=== PATIENT | male | born 1995 | race Caucasian/White ===

== ENCOUNTER 2019-01-14 08:56 | Emergency (ER) | payer OTHER, SELFPAY ==
[2019-01-14 08:57] VITALS: BP 130/80; PULSE 79; RESP 18; TEMP 36.6; O2SAT 99; BMI 19.5
--- NOTE | 2019-01-14 09:23 | EKG12_ITS ---
Test Reason : CONFUSION Blood Pressure : / mmHG Vent. Rate : 060 BPM Atrial Rate : 060 BPM P-R Int : 154 ms QRS Dur : 106 ms QT Int : 408 ms P-R-T Axes : 055 049 036 degrees QTc Int : 408 ms Normal sinus rhythm with sinus arrhythmia Normal ECG Confirmed by BINH RAGSDALE ([id number]), photograph editor JORDAN ÁLVAREZ ([id number]) on 01/20/2019 3:39:19 PM Referred By: MIMA Confirmed By:BINH RAGSDALE
--- NOTE | 2019-01-14 09:23 | CT_ITS ---
STUDY: CT BRAIN WITHOUT CONTRAST REASON FOR EXAM: Male, 23 years old. Headache since last evening. RADIATION DOSAGE (If Supplied By Facility): CTDIvol = ( 44.99 ) mGy, DLP = ( 796.11 ) mGycm TECHNIQUE: Transaxial CT imaging of the brain was performed without administration of intravenous contrast material. Multiplanar reformations are submitted for interpretation. Individualized dose optimization techniques were used for this CT. COMPARISON: No relevant priors. FINDINGS: Normal soft tissue structures. Normal calvarium. There is asymmetry of the ventricles consistent with an anatomic variant. Normal white matter tracts of the cerebral hemispheres. Normal basal ganglia and thalami. Normal brainstem. Normal cerebellum. There is no intracranial hemorrhage. There are no findings of an acute ischemic infarction. Normal visualized paranasal sinuses. CT/Brain/Head without Contrast IMPRESSION: No CT evidence for acute abnormality. Electronically Signed: Dixie Johnson MD at 10:19 EDT , Service support ,
--- NOTE | 2019-01-14 09:24 | ED.DCSUM_ITS ---
History of Present Illness Chief Complaint: Confusion Detail of Chief Complaint: Confusion and headache Informant: Patient Onset: Yesterday Context: Gradual Onset Current Severity: Moderate Maximum Severity: Moderate Narrative: Patient presents with a frontal headache that started around 6 PM last evening. It gradually worsened. He reports having difficulty concentrating. He feels like his speech is slower than normal. He does have light sensitivity and sensitivity to loud sounds. He denies nausea or vomiting. He has not taken anything for headache. He denies any recent head injury or URI symptoms. He does not have a history of migraines. Past Medical History - Allergies and Home Meds Allergies/Adverse Reactions: Allergies No Known Allergies Allergy (Verified 01/14/19 09:56) Primary Care Physician: Care Physician,No Primary [Primary Care Provider] - Prior records reviewed: Yes Past Medical History: - - Reviewed Smoking Status: Current every day smoker Review of Systems General: Denies: Chills, Fever Eyes: Reports: Visual changes - bilaterally - Squiggly lines in vision, - - Mild photophobia ENT: Denies: Bilateral ear pain Cardiovascular: Denies: Chest pain, Palpitations Respiratory: Denies: Dyspnea, Cough Gastrointestinal: Denies: Abdominal pain, Nausea, Vomiting, Diarrhea Musculoskeletal: Denies: Neck pain, Back pain Skin: Denies: Rash Neurological: Reports: Headache. Denies: Weakness, Parasthesia Hematologic: Denies: Easy bruising, Easy bleeding Allergy: Denies: Uticaria Physical Exam Vital Signs/Narrative: Vital Signs Temp Pulse Resp BP Pulse Ox 01/14/19 08:57 97.9 F 79 18 130/80 H 99 Diagnostic/Tx/Re-eval Impressions Brain CT 01/14/19 09:23 IMPRESSION: No CT evidence for acute abnormality. Electronically Signed: Dixie Johnson MD at 10:19 EDT , Service support , 01/14/19 09:23 Brain/Head without Contrast [CT] Stat Laboratory Results 01/14/19 01/14/19 09:28 09:28 WBC 6.5 RBC 5.44 Hgb 15.3 Hct 44.6 MCV 82.0 MCH 28.1 MCHC 34.3 RDW Std Deviation 36.6 RDW Coeff of Geni 12.3 Plt Count 195 MPV 9.5 Immature Gran % (Auto) 0.200 Neut % (Auto) 53.1 Lymph % (Auto) 37.5 [place] % (Auto) 5.8 Eos % (Auto) 2.9 Baso % (Auto) 0.5 Absolute Neuts (auto) 3.5 Absolute Lymphs (auto) 2.45 Nucleated RBC % 0 Sodium 138 Potassium 3.4 L Chloride 107 Carbon Dioxide 27.0 Anion Gap 4 L BUN 9 Creatinine 0.91 Estim Creat Clear Calc 100.38 Est GFR (MDRD) Af Amer 131 Est GFR (MDRD) Non-Af 109 BUN/Creatinine Ratio 9.9 L Glucose 104 Calcium 8.8 - Medical Decision Making Once head CT was completed he was given Toradol, Reglan, Benadryl, and IV fluids. On repeat evaluation he is sleeping comfortably. He easily awakens. He states his head feels significantly improved. He will be discharged home with family at this time. If he continues to have symptoms he is referred to Dr. Ruby for follow-up. Patient's speech seems to be improved to me at this time, but the patient is sleepy and it is difficult to evaluate. ED Disposition - Plan for ED Patient: Disposition: Home or Assisted Living Diagnosis: Migraine Instructions: ED, Migraine (Classical) Referrals: Benjy Ruby MD [STAFF PHYSICIAN] - As Needed
[2019-01-14 09:35] LABS: Absolute Lymphocyte Count 2.45 X10^3/uL (0.83-4.51); Absolute Neutrophil Count 3.5 X10^3/uL (2.0-7.7); Basophil# 0.03 X10^3/uL; Basophil% 0.5 % (0-1); Eosinophil# 0.19 X10^3/uL; Eosinophils% 2.9 % (0-5); Hematocrit 44.6 % (40-54); Hemoglobin 15.3 g/dL (13.0-16.5); Lymphocyte # 2.45 X10^3/ul (4.0); Lymphocyte % 37.5 % (19-41); Mean Corp Hgb Conc 34.3 g/dL (32-36); Mean Corpuscular Hgb 28.1 pg (27.0-32.0); Mean Platelet Vol. 9.5 fl (6.2-12.0); Monocyte# 0.38 X10^3/uL; Monocyte% 5.8 % (0-10); NRBC Flagged by Analyzer 0 % (0-5); Neutrophil # 3.47 X10^3/uL (2.7-7.7); Neutrophil % 53.1 % (47-70); Platelet Count 195 K/mm3 (150-450); RBC Distribution Width CV 12.3 % (11.6-14.6); RBC Distribution Width SD 36.6 fl (35.1-43.9); Red Blood Count 5.44 M/mm3 (4.6-6.2); White Blood Count 6.5 K/mm3 (4.4-11.0)
[2019-01-14 09:49] LABS: Anion Gap 4 (5-15); BUN 9 mg/dL (7-18); BUN/Creat Ratio 9.9 RATIO (10-20); Calcium,Total 8.8 mg/dL (8.5-10.1); Chloride 107 mmol/L (98-107); Creatinine, Serum 0.91 mg/dL (0.70-1.30); EST Glomerular Filtration Rate 109 mL/min (>60); Est Glom Filt Rate - Afr Amer 131 mL/min (>60); Estimated Creatinine Clearance 100.38 ml/min; Glucose 104 mg/dL (74-106); Potassium 3.4 mmol/L (3.5-5.1); Sodium Level 138 mmol/L (136-145)
[2019-01-14] MEDS: 0.9% Normal Saline 1,000 ML 1000 ML IV (09:58)
[2019-01-14] MEDS: DiphenhydrAMINE 50 MG/ML Syringe 25 MG IV (11:10)
[2019-01-14] MEDS: Metoclopramide 10 MG/2 ML Vial 5 MG IV (11:10)
[2019-01-14] MEDS: Ketorolac 30 MG/ML Syringe IV (11:10)
[2019-01-14 11:11] VITALS: BP 125/89; PULSE 62; RESP 16; O2SAT 100
[2019-01-14 12:43] VITALS: BP 127/75; PULSE 78; RESP 18; O2SAT 99
== END 2019-01-14 12:45 | disposition home or self-care (01) ==
PROVIDERS: Emergency Provider Emergency Medicine
DX: G43.909 Migraine, unspecified, not intractable, without status migrainosus (principal); F17.200 Nicotine dependence, unspecified, uncomplicated
CPT/HCPCS: 70450; 80048; 85025; 93005; 96361; 96374; 96375; 99283; J7030; A4216

== ENCOUNTER 2019-07-08 12:25 | Emergency (ER) | payer OTHER, SELFPAY ==
[2019-07-08 12:28] VITALS: BP 110/74; PULSE 85; RESP 18; TEMP 36.7; O2SAT 95; BMI 22.1
[2019-07-08 12:38] VITALS: PULSE 78; O2SAT 98
--- NOTE | 2019-07-08 12:46 | ED.VIS.GEN ---
History of Present Illness Chief Complaint: Cough Narrative: Patient is a 23-year-old male who presents with progressive cough. He does have a history of asthma. He has had a progressively worsening cough and shortness of breath for 3 months. He had a telemedicine visit today. He was prescribed a maintenance steroid inhaler. However he was then advised to go to the emergency department as he may need some breathing treatments and looked over. He denies any fever. No recent URI-like illness such as congestion runny nose or sore throat. He had posttussive emesis last week but is not nauseated. No nausea or diarrhea. He denies any medical history otherwise such as diabetes hypertension hyperlipidemia. Past Medical History - Allergies and Home Meds Allergies/Adverse Reactions: Allergies No Known Allergies Allergy (Verified 07/08/19 12:26) Primary Care Physician: Care Physician,No Primary [Primary Care Provider] - Past Medical History: - - Asthma Smoking Status: Current every day smoker Review of Systems All systems negative except as indicated General: Denies: Fever Eyes: Denies: Visual changes - bilaterally ENT: Denies: Bilateral ear pain Cardiovascular: Denies: Chest pain Respiratory: Reports: Dyspnea, Cough Gastrointestinal: Reports: Vomiting. Denies: Nausea, Diarrhea Musculoskeletal: Denies: Myalgias Skin: Denies: Rash Neurological: Denies: Headache Physical Exam Vital Signs/Narrative: Vital Signs Temp Pulse Resp BP Pulse Ox 07/08/19 12:38 78 98 07/08/19 12:28 98.1 F 85 18 110/74 95 Inital Vital Signs reviewed: Yes General: Well nourished, Well developed Head: Normocephalic Eyes: EOMI ENT: Moist mucous membranes Neck: Supple Cardiovascular: Regular rate, Regular rhythm Respiratory: No distress, CTA bilaterally. Negative for: Rales, Rhonchi, Wheezing Abdomen: Soft Skin: Normal color Neurological: Alert Psychological: Normal affect Diagnostic/Tx/Re-eval - Medical Decision Making Patient is clinically well-appearing. He does not appear dyspneic. He is able to speak in full sentences. He has stable/normal vital signs. His lungs are clear. I do not believe he needs any emergent intervention here in the emergency department but I did provide him with a prescription for a prednisone burst and a refill on his albuterol inhaler. He was advised to follow-up as an outpatient and was discharged home. ED Disposition - Plan for ED Patient: Disposition: Home or Assisted Living Diagnosis: Asthma Instructions: ED REACTIVE AIRWAY DISEASE Adult Prescriptions: predniSONE tablet 60 mg PO DAILY #15 tab Prescription Printed Albuterol Inhaler [Ventolin Hfa] 1 - 2 puff INHALATION Q4H PRN PRN #1 inhaler PRN Reason: Wheezing Prescription Printed Referrals: Care Physician,No Primary [Primary Care Provider] -
== END 2019-07-08 13:25 | disposition home or self-care (01) ==
LOC: ED 13:02
PROVIDERS: Emergency Provider Emergency Medicine
DX: J45.909 Unspecified asthma, uncomplicated (principal); F17.200 Nicotine dependence, unspecified, uncomplicated
CPT/HCPCS: 99282

== ENCOUNTER 2020-05-10 17:51 | Emergency (ER) | payer OTHER, SELFPAY ==
[2020-05-10 17:52] VITALS: BP 146/80; PULSE 77; RESP 15; TEMP 36.4; O2SAT 98; BMI 22.8
--- NOTE | 2020-05-10 18:00 | EKG12_ITS ---
Test Reason : CP SOB Blood Pressure : / mmHG Vent. Rate : 068 BPM Atrial Rate : 068 BPM P-R Int : 136 ms QRS Dur : 102 ms QT Int : 376 ms P-R-T Axes : 064 054 040 degrees QTc Int : 399 ms Normal sinus rhythm with sinus arrhythmia Normal ECG Confirmed by PENNIE HOLLINGSWORTH, LULU ([id number]), image editor HAILEY DASILVA ([id number]) on 05/12/2020 1:30:04 PM Referred By: ELYSIA Confirmed By:LULU CASPER MD
--- NOTE | 2020-05-10 18:05 | ED.DCSUM_ITS ---
History of Present Illness Chief Complaint: Chest Pain Informant: Patient Onset: Weeks Context: Gradual Onset Timing: Intermittent Current Severity: Moderate Maximum Severity: Moderate Narrative: Patient is a 24-year-old male with history of reactive airway disease who presents to the emergency department chest pain and cough. Patient states is been going off and on for months. He states over the past week, is gotten worse. He states that he has stopped vaping recently. He states that today, he had worsening cough and felt like he could taste blood. He went to urgent care and was sent here for further evaluation. It is not positional. It is not made worse with exertion. He denies fevers or chills. Prior similar symptoms: Yes Recent Illness/Hospitalization: No Past Medical History - Allergies and Home Meds Allergies/Adverse Reactions: Allergies No Known Allergies Allergy (Verified 05/10/20 17:51) Primary Care Physician: Care Physician,No Primary [Primary Care Provider] - Prior records reviewed: Yes Past Medical History: None Surgical History: noncontributory Smoking Status: Former smoker Review of Systems General: Denies: Chills, Fever, Sweats Eyes: Denies: Visual changes - bilaterally, Diplopia ENT: Denies: Rhinorrhea, Sore throat Cardiovascular: Reports: Chest pain. Denies: Palpitations Respiratory: Reports: Cough. Denies: Dyspnea, Dyspnea on exertion Gastrointestinal: Denies: Abdominal pain, Nausea, Vomiting, Diarrhea, Melena, Hematochezia Genitourinary: Denies: Dysuria, Hematuria, Frequency Musculoskeletal: Denies: Back pain, Extremity Pain Skin: Denies: Rash, Wounds Neurological: Denies: Headache, Weakness, Numbness Physical Exam Vital Signs/Narrative: Vital Signs Temp Pulse Resp BP Pulse Ox 05/10/20 17:52 97.6 F L 77 15 146/80 H 98 Inital Vital Signs reviewed: Yes General: Well nourished, Well developed, No Acute Distress Head: Normocephalic, Atraumatic Eyes: Perrl, EOMI ENT: Moist mucous membranes, No rhinorrhea Neck: Supple, Nontender Cardiovascular: Regular rate, Regular rhythm, No murmurs Respiratory: No distress, CTA bilaterally, Chest nontender Abdomen: Soft, Nontender, Nondistended, Normal bowel sounds Back: Nontender, Normal Inspection Extremities: Nontender, No edema Skin: Normal color, No rash Neurological: Alert, Oriented x3, Cranial nerves II-XII grossly intact, Normal Strength, Normal Sensation Psychological: Normal affect, Normal Mood Diagnostic/Tx/Re-eval Chest X-Ray - ED: 1 View, Read by ED Physician, Normal, Heart, Lungs, Mediastinum, Bony Structures, No Acute Disease Abnormal Lab Results 05/10/20 05/10/20 05/10/20 18:05 18:05 18:05 WBC 8.1 RBC 5.59 Hgb 15.7 Hct 46.4 MCV 83.0 MCH 28.1 MCHC 33.8 RDW Std Deviation 38.5 RDW Coeff of Geni 12.7 Plt Count 218 MPV 10.2 Immature Gran % (Auto) 0.400 Neut % (Auto) 57.0 Lymph % (Auto) 27.3 [place] % (Auto) 6.1 Eos % (Auto) 8.6 H Baso % (Auto) 0.6 Absolute Neuts (auto) 4.6 Absolute Lymphs (auto) 2.20 Nucleated RBC % 0 D-Dimer Quant (PE/DVT) <= 0.27 Sodium 138 Potassium 4.0 Chloride 105 Carbon Dioxide 27.0 Anion Gap 6 BUN 19 H Creatinine 0.95 Estim Creat Clear Calc 111.13 Est GFR (MDRD) Af Amer 123 Est GFR (MDRD) Non-Af 102 BUN/Creatinine Ratio 19.9 Glucose 95 Calcium 9.2 Total Bilirubin 0.70 AST 23 ALT 32 Alkaline Phosphatase 82 Total Protein 7.5 Albumin 4.4 Globulin 3.1 Albumin/Globulin Ratio 1.4 - Rhythm Strip Rhythm Strip: Sinus Rhythm Rate: 70 Ectopy: None - EKG Initial EKG Interpretation: No Acute Injury Pattern, Sinus Arrythmia Prior: Unchanged - Medical Decision Making Patient presents with intermittent chest pain and cough. EKG was obtained. Was sinus rhythm without acute ischemic change. I did obtain screening labs. These were unremarkable. Patient's D-dimer was negative. My suspicion is that he likely has some bronchospasm. I am going to treat him with a short burst of steroids. I do not suspect a dangerous process. He will be discharged home. Impression 1. Noncardiac chest pain ED Disposition - Plan for ED Patient: Instructions: ED Chest Wall Pain, Costochondritis Prescriptions: Prednisone [Deltasone] 60 mg PO DAILY #15 tab Prescription Printed Albuterol Inhaler [Ventolin Hfa] 1 - 2 puff INHALATION Q4H PRN PRN #1 inhaler PRN Reason: Wheezing Prescription Printed Referrals: Care Physician,No Primary [Primary Care Provider] -
--- NOTE | 2020-05-10 18:07 | RAD_ITS ---
STUDY: X-RAY CHEST REASON FOR EXAM: Male, 24 years old. CHEST PAIN X 1 WEEK. SOB, SORE THROAT. TECHNIQUE: Single AP portable view of the chest. COMPARISON: None. FINDINGS: EKG leads overlie the chest The lungs are clear and expanded. There is no demonstrated pleural abnormality. Normal size heart. Normal mediastinum and noe. Normal visualized pulmonary arteries. Normal visualized aortic arch and descending thoracic aorta. Normal visualized thoracic spine. Normal visualized ribs, clavicles, and shoulders. There is no demonstrated abnormality of the visualized soft tissue structures of the upper abdomen. RAD/Chest 1 View (Portable) IMPRESSION: Normal x-ray examination of the chest. Electronically Signed: Gonzalo Lamb MD at 18:19 EST , Service support ,
[2020-05-10] MEDS: 0.9% Normal Saline 1,000 ML 1000 ML IV (18:15)
[2020-05-10] MEDS: Ketorolac 15 MG/ML Vial IV (18:15)
[2020-05-10 18:22] LABS: Absolute Neutrophil Count 4.6 X10^3/uL (2.0-7.7); Basophil# 0.05 X10^3/uL; Basophil% 0.6 % (0-1); Eosinophil# 0.69 X10^3/uL; Eosinophils% 8.6 % (0-5); Hematocrit 46.4 % (40-54); Hemoglobin 15.7 g/dL (13.0-16.5); Lymphocyte % 27.3 % (19-41); Mean Corp Hgb Conc 33.8 g/dL (32-36); Mean Corpuscular Hgb 28.1 pg (27.0-32.0); Mean Platelet Vol. 10.2 fl (6.2-12.0); Monocyte# 0.49 X10^3/uL; Monocyte% 6.1 % (0-10); NRBC Flagged by Analyzer 0 % (0-5); Neutrophil # 4.59 X10^3/uL (2.7-7.7); Platelet Count 218 K/mm3 (150-450); RBC Distribution Width CV 12.7 % (11.6-14.6); RBC Distribution Width SD 38.5 fl (35.1-43.9); Red Blood Count 5.59 M/mm3 (4.6-6.2); White Blood Count 8.1 K/mm3 (4.4-11.0)
[2020-05-10 18:35] LABS: ALB/GLOB Ratio 1.4 RATIO (0.9-2.4); AST(SGOT) 23 U/L (15-37); Alanine Aminotransfer ALT/SGPT 32 U/L (16-61); Albumin, Serum 4.4 g/dL (3.2-5.0); Alkaline Phosphatase 82 U/L (45-117); Anion Gap 6 (5-15); BUN 19 mg/dL (7-18); BUN/Creat Ratio 19.9 RATIO (10-20); Calcium,Total 9.2 mg/dL (8.5-10.1); Chloride 105 mmol/L (98-107); Creatinine, Serum 0.95 mg/dL (0.70-1.30); EST Glomerular Filtration Rate 102 mL/min (>60); Est Glom Filt Rate - Afr Amer 123 mL/min (>60); Estimated Creatinine Clearance 111.13 ml/min; Globulin 3.1 g/dL (2.2-4.2); Glucose 95 mg/dL (74-106); Protein, Total 7.5 g/dL (6.4-8.2); Sodium Level 138 mmol/L (136-145)
[2020-05-10 18:41] LABS: D-Dimer Quantitative (DVT/PE) <= 0.27 FEU/ug/m (0.27-0.49)
[2020-05-10 19:13] VITALS: BP 121/75; PULSE 71; RESP 18; O2SAT 97
== END 2020-05-10 19:14 | disposition home or self-care (01) ==
LOC: ED 18:23
PROVIDERS: Emergency Provider Emergency Medicine
DX: R07.89 Other chest pain (principal); Z87.891 Personal history of nicotine dependence
CPT/HCPCS: 71045; 80053; 85025; 85379; 93005; 96361; 96374; 99284; A4216

== ENCOUNTER 2020-07-09 14:24 | Observation (INO) | payer OTHER, SELFPAY ==
[2020-07-09] VITALS (11 sets, daily range): BP systolic 118–166; BP diastolic 69–103; PULSE 95–135; RESP 15–24; TEMP 36.6–36.9; O2SAT 89–98; BMI 22.7; BMI 22.4
--- NOTE | 2020-07-09 14:41 | ED.VIS.GEN ---
History of Present Illness Chief Complaint: Asthma Informant: Patient Narrative: 24-year-old male with past medical history of asthma presents for exacerbation. States it began approximately 8 to 10 hours ago. States he has had a slight cough over the past few days. Denies any fever or chills. States became profoundly short of breath throughout the day today. Has been using aerosols at home. Patient was recently started on prednisone yesterday. He just finished the course last week. Denies any chest pain, nausea, vomiting, diaphoresis. Past Medical History - Allergies and Home Meds Allergies/Adverse Reactions: Allergies No Known Allergies Allergy (Verified 07/09/20 14:27) Prior records reviewed: Yes Past Medical History: - - asthma Surgical History: noncontributory Lives: Alone Smoking Status: Current some day smoker Alcohol: None Drugs: None - Family History Maternal Family History: Reports: - - Patient claims mother has a large psychiatric history, however is not familiar with the diagnoses. Paternal Family History: Reports: Unknown Review of Systems General: Denies: Chills, Fever, Sweats Eyes: Denies: Visual changes - bilaterally, Diplopia ENT: Denies: Rhinorrhea, Sore throat Cardiovascular: Denies: Chest pain, Palpitations Respiratory: Reports: Dyspnea, Cough. Denies: Dyspnea on exertion Gastrointestinal: Denies: Abdominal pain, Nausea, Vomiting, Diarrhea, Melena, Hematochezia Genitourinary: Denies: Dysuria, Hematuria, Frequency Musculoskeletal: Denies: Back pain, Extremity Pain Skin: Denies: Rash, Wounds Neurological: Denies: Headache, Weakness, Numbness Physical Exam Vital Signs/Narrative: Vital Signs Temp Pulse Resp BP Pulse Ox 07/09/20 14:24 97.9 F 98 21 H 166/103 H 89 General: Well nourished, Well developed, No Acute Distress Head: Normocephalic, Atraumatic Eyes: Perrl, EOMI ENT: Moist mucous membranes, No rhinorrhea Neck: Supple, Nontender Cardiovascular: Regular rate, Regular rhythm, No murmurs Respiratory: No distress, Chest nontender, Wheezing, Diminished Abdomen: Soft, Nontender, Nondistended, Normal bowel sounds Back: Nontender, Normal Inspection Extremities: Nontender, No edema Skin: Normal color, No rash Neurological: Alert, Oriented x3, Cranial nerves II-XII grossly intact, Normal Strength, Normal Sensation Psychological: Normal affect, Normal Mood Diagnostic/Tx/Re-eval Chest X-Ray - ED: 1 View, Read by ED Physician, Read by Radiologist, Normal Clinical Impression(s) from Imaging Studies Chest X-Ray 07/09/20 15:21 IMPRESSION: Normal x-ray examination of the chest. Electronically Signed: Juan Jose Patel MD at 15:43 EDT , Service support , Laboratory Data 07/09/20 07/09/20 14:30 14:30 WBC 13.6 H RBC 5.98 Hgb 17.0 H Hct 49.6 MCV 82.9 MCH 28.4 MCHC 34.3 RDW Std Deviation 37.3 RDW Coeff of Geni 12.3 Plt Count 269 MPV 9.7 Immature Gran % (Auto) 0.400 Neut % (Auto) 95.0 H Lymph % (Auto) 3.7 L [place] % (Auto) 0.6 Eos % (Auto) 0.1 Baso % (Auto) 0.2 Absolute Neuts (auto) 12.9 H Absolute Lymphs (auto) 0.50 L Nucleated RBC % 0 Differential Comment SCANNED Sodium 136 Potassium 3.9 Chloride 103 Carbon Dioxide 28.0 Anion Gap 5 BUN 9 Creatinine 1.03 Estim Creat Clear Calc 102.19 Est GFR (MDRD) Af Amer 112 Est GFR (MDRD) Non-Af 93 BUN/Creatinine Ratio 8.7 L Glucose 155 H Calcium 9.9 - Medical Decision Making [place] requiring 2 L by nasal cannula upon arrival given hypoxemia on room air of 87 to 88%. Bilateral expiratory wheezing with diminished breath sounds. Patient given aerosol breathing treatment as well as IV Solu-Medrol. Chest x-ray interpreted by myself shows no acute infiltrate. Radiology concurs. Patient improved and was weaned off of oxygen. He was monitored in the department and then began becoming more tachypneic and was desaturating 92% on room air. Patient will be given magnesium and admitted in the hospital for further treatment and evaluation including frequent aerosols as well as continued steroid therapy. Patient stable at time of admission. Impression: 1. Asthma exacerbation ED Disposition - Plan for ED Patient: Disposition: Acute Care [facility]
[2020-07-09] MEDS: Albuterol 2.5 MG/3 ML VIAL.NEB. INHALATION ×2 (14:44)
[2020-07-09] MEDS: Ipratropium/Albuterol Sulfate 3 ML AMPUL.NEB INHALATION ×2 (14:44→19:30)
[2020-07-09] MEDS: MethylPREDNISolone 125 MG/2 ML Vial IV (14:47)
[2020-07-09 14:52] LABS: Absolute Neutrophil Count 12.9 X10^3/uL (2.0-7.7); Basophil# 0.03 X10^3/uL; Basophil% 0.2 % (0-1); Eosinophil# 0.02 X10^3/uL; Eosinophils% 0.1 % (0-5); Hematocrit 49.6 % (40-54); Lymphocyte % 3.7 % (19-41); Mean Corp Hgb Conc 34.3 g/dL (32-36); Mean Corpuscular Hgb 28.4 pg (27.0-32.0); Mean Corpuscular Volume 82.9 fL (80-94); Mean Platelet Vol. 9.7 fl (6.2-12.0); Monocyte# 0.08 X10^3/uL; Monocyte% 0.6 % (0-10); NRBC Flagged by Analyzer 0 % (0-5); Neutrophil # 12.91 X10^3/uL (2.7-7.7); POSITIVE DIFFERENTIAL YES; Platelet Count 269 K/mm3 (150-450); RBC Distribution Width CV 12.3 % (11.6-14.6); RBC Distribution Width SD 37.3 fl (35.1-43.9); Red Blood Count 5.98 M/mm3 (4.6-6.2); White Blood Count 13.6 K/mm3 (4.4-11.0)
[2020-07-09 14:59] LABS: Anion Gap 5 (5-15); BUN 9 mg/dL (7-18); BUN/Creat Ratio 8.7 RATIO (10-20); Calcium,Total 9.9 mg/dL (8.5-10.1); Chloride 103 mmol/L (98-107); Creatinine, Serum 1.03 mg/dL (0.70-1.30); EST Glomerular Filtration Rate 93 mL/min (>60); Est Glom Filt Rate - Afr Amer 112 mL/min (>60); Estimated Creatinine Clearance 102.19 ml/min; Glucose 155 mg/dL (74-106); Potassium 3.9 mmol/L (3.5-5.1); Sodium Level 136 mmol/L (136-145)
[2020-07-09 15:00] LABS: Differential Indicated SCAN CRITERIA MET
[2020-07-09 15:10] LABS: Differential Comment SCANNED
--- NOTE | 2020-07-09 15:21 | RAD_ITS ---
STUDY: X-RAY CHEST REASON FOR EXAM: Male, 24 years old. Dyspnea TECHNIQUE: Single AP portable view of the chest. COMPARISON: Comparison is made with prior study dated 05/10/2020. FINDINGS: EKG electrodes are seen. Hyperinflation. The lungs are clear. There is no demonstrated pleural abnormality. Normal size heart. Normal mediastinum and noe. Normal visualized pulmonary arteries. Normal visualized aortic arch and descending thoracic aorta. Normal visualized thoracic spine. Normal visualized ribs, clavicles, and shoulders. There is no demonstrated abnormality of the visualized soft tissue structures of the upper abdomen. RAD/Chest 1 View (Portable) IMPRESSION: Normal x-ray examination of the chest. Electronically Signed: Juan Jose Patel MD at 15:43 EDT , Service support ,
--- NOTE | 2020-07-09 17:35 | HP.PCM_ITS ---
<Byron Cox PA - Last Filed: 07/09/20 17:35> Problem List (1) Acute asthma exacerbation Status: Acute (2) Bronchial asthma Status: Chronic (3) Vaping nicotine dependence, non-tobacco product Status: Resolved History of Present Illness Date of Admission: 07/09/20 Chief Complaint: Shortness of breath secondary to asthma exacerbation This patient is a 24-year-old male who presents to the ED at [facility] with a chief complaint of shortness of breath secondary to an asthma exacerbation. Patient states that over the past 2 days he has developed a cough that is alternating between productive and nonproductive. When the cough is productive he notes that it is opaque in appearance. Patient states that he has been using his albuterol inhaler multiple times over the past 2 days, with no resolution of symptoms. Patient states that he did obtain a dose of prednisone from his primary care provider yesterday and that has helped his symptoms. Patient's last dose of prednisone was this morning. Patient's past medical history is significant for bronchial asthma and vaping x7 years. Patient also endorses some chest pain, which he relates to his heavy cough.Patient states that he has ceased using vaping products for the past 6 months. Patient denies any cigarette use. Denies any illicit drug use. Patient denies fever, chills, N/V/D, palpitations. Vital signs are tachycardic at a pulse above 120 and tachypneic at of 20. White blood cells mildly elevated at 13.6. BMP unremarkable. Chest x-ray shows no acute cardiopulmonary process. Rapid Covid negative. \ Past Medical History Past Medical History (Chronic Problems): Chronic Problems Bronchial asthma (Chronic) Allergies No Known Allergies Allergy (Verified 07/09/20 14:27) Home Medications: Ambulatory Orders Medication Instructions Recorded Albuterol Inhaler [Ventolin Hfa] 1 - 2 puff INHALATION Q4H PRN PRN 05/10/20 #1 inhaler Prednisone [Deltasone] 60 mg PO DAILY #15 tab 05/10/20 Cetirizine HCl [Zyrtec] 10 mg PO DAILY 07/09/20 Fluticasone Propionate [Flovent 2 puff INHALATION BID 07/09/20 Diskus] Surgical History: noncontributory Lives: Alone Smoking Status: Current some day smoker Alcohol: None Drugs: None - *Family History Maternal History Items: - - Patient claims mother has a large psychiatric history, however is not familiar with the diagnoses. Paternal History Items: Unknown Review of Systems Constitutional: Denies: Chills, Fever, Weight Change HEENT: Denies: Head Aches, Sinus Congestion, Sinus Drainage Cardiovascular: Reports: Chest Pain. Denies: Palpitations Respiratory: Reports: Cough, Shortness of Breath, Shortness of breath at rest, Shortness of breath upon exertion, Sputum production, Wheezing Gastrointestinal: Denies: Abdominal Pain, Nausea, Vomiting Genitourinary: Denies: Dysuria Musculoskeletal: Denies: Joint Pain, Joint Tenderness Skin: Denies: Rash, Wounds Neurological: Denies: Numbness, Tingling, Focal weakness Psychiatric: Denies: Anxiety, Depression, Homicidal Ideations, Suicidal Ideations Hematologic/ Lymphatic: Denies: Easy Bruising, Easy Bleeding VTE Information - Inpt Only VTE Present on Admission: No VTE Mechan Device Prophylaxis: SCD's - Low risk VTE Pharm Prophylaxis ordered?: No Patient Problems: Active and Suspected Problems Acute asthma exacerbation (Acute) Subjective: Patient is a 24-year-old male who endorses a 2-day history of increasing shortness of breath, alternating productive and nonproductive cough and chest pain in the setting of bronchial asthma. Patient endorses utilizing albuterol inhaler multiple times with no resolution of symptoms. Patient did obtain a prescription of prednisone from his primary care provider, he took 2/tab of this morning which did resolve his symptoms. Patient reports that prednisone is only and that helps his symptoms. Past medical history is significant for bronchial asthma and vaping x7 years. Patient reports stopping vaping 6 months ago. Objective: Clinical Impression(s) from Imaging Studies Chest X-Ray 07/09/20 15:21 IMPRESSION: Normal x-ray examination of the chest. Electronically Signed: Juan Jose Patel MD at 15:43 EDT , Service support , - Physical Exam Vitals/I&O's: Vital Signs Temp Pulse Resp BP Pulse Ox 97.9 F 120 H 19 H 123/71 H 98 07/09/20 17:17 07/09/20 17:17 07/09/20 17:17 07/09/20 17:17 07/09/20 17:17 Oxygen Flow Rate (L/min) 2 Oxygen Delivery Method Nasal Cannula Weight: 145 lb 4.554 oz Body Mass Index (BMI) 22.7 General: Alert, Oriented x3, Cooperative HEENT: Atraumatic, PERRLA, EOMI, Normocephalic Neck: Supple, No JVD, Negative Carotid Bruits Lungs: Diminished - Wheezing heard throughout the lung nieto bilaterally., Short of Breath, Wheezes Cardiovascular: Regular Rhythm, Tachycardic Abdomen: Bowel Sounds Present, Soft, Non Tender Extremities: No edema, Capillary Refill Less than 3 Seconds Skin: No rashes, No breakdown Musculoskeletal: No Tenderness to Palpation of Joints or Extremities Neurological: Cranial nerves II-XII grossly intact Psych/Mental Status: Normal Affect, Appropriate Microbiology Past 72 Hours 07/09/20 15:00 Mucosa - Nose SARS-CoV-2 Antigen (Rapid) - Final Laboratory Results 07/09/20 14:30: WBC 13.6 H, RBC 5.98, Hgb 17.0 H, Hct 49.6, MCV 82.9, MCH 28.4, MCHC 34.3, RDW Std Deviation 37.3, RDW Coeff of Geni 12.3, Plt Count 269, MPV 9.7, Immature Gran % (Auto) 0.400, Neut % (Auto) 95.0 H, Lymph % (Auto) 3.7 L, [place] % (Auto) 0.6, Eos % (Auto) 0.1, Baso % (Auto) 0.2, Absolute Neuts (auto) 12.9 H, Absolute Lymphs (auto) 0.50 L, Nucleated RBC % 0, Differential Comment SCANNED 07/09/20 14:30: Sodium 136, Potassium 3.9, Chloride 103, Carbon Dioxide 28.0, Anion Gap 5, BUN 9, Creatinine 1.03, Estim Creat Clear Calc 102.19, Est GFR (MDRD) Af Amer 112, Est GFR (MDRD) Non-Af 93, BUN/Creatinine Ratio 8.7 L, Glucose 155 H, Calcium 9.9 Assessment/Plan All Active Problems Acute asthma exacerbation (Acute) Patient is a 24-year-old male who endorses a 2-day history of increasing shortness of breath, alternating productive and nonproductive cough and chest pain. Patient relates his chest pain to breathing heavily and his cough. Patient reports utilizing his albuterol inhaler multiple times over the past 2 days to no avail. Patient obtained a dose of prednisone from his primary care provider which does help decrease his shortness of breath. Patient's last reported dose of present prednisone was 2 tablets taken this morning. Vital signs were significant for tachycardia at a rate of 120. Tachypnea at a rate of 20. Patient O2 sats are 98% on O2 at 2 L/min via nasal cannula. Labs obtained in the ED revealed a mild elevation in white blood cells at 13.6. BMP unremarkable. Chest x-ray demonstrated no evidence of an acute cardiopulmonary process. My physical exam was significant for bilateral expiratory wheezing with diminished breath sounds on auscultation. Patient will be admitted to the PCU for observation overnight. 1) Asthma Exacerbation Assessment - WBC 13.6 - Tachypneic at a rate above 20 - Tachycardic at a rate above 120 - CXR unremarkable - Rapid Covid negative - Expiratory wheezing with diminished breath sounds over both lung nieto - O2 saturation 98% on O2 via nasal cannula at 2 L/min Plan - Admit overnight to PCU for observation - Initiate oxygen therapy protocol - Initiate Solu-Medrol 40 mg IV every 8 - Initiate DuoNeb at 3 mL every 4 - Initiate Ventolin aerosols 2.5 mg every 2 as needed 2) Bronchial asthma Assessment - Managed chronically since childhood Plan - See above 3) Vaping/nicotine dependence Assessment - Has ceased vaping for 6 months Plan - Encourage further cessation DVT prophylaxis-SCDs (low risk) Patient seen by Byron Cox PA-C, under the supervision of Dr. Zeng. <Betty Zeng E - Last Filed: 07/09/20 18:14> History of Present Illness The patient is a 24 year old M [] Past Medical History Allergies No Known Allergies Allergy (Verified 07/09/20 14:27) - Physical Exam Vitals/I&O's: Vital Signs Temp Pulse Resp BP Pulse Ox 97.9 F 120 H 19 H 123/71 H 98 07/09/20 17:17 07/09/20 17:17 07/09/20 17:17 07/09/20 17:17 07/09/20 17:17 Oxygen Flow Rate (L/min) 2 Oxygen Delivery Method Nasal Cannula Weight: 145 lb 4.554 oz Body Mass Index (BMI) 22.7 Microbiology Past 72 Hours 07/09/20 15:00 Mucosa - Nose SARS-CoV-2 Antigen (Rapid) - Final Laboratory Results 07/09/20 14:30: WBC 13.6 H, RBC 5.98, Hgb 17.0 H, Hct 49.6, MCV 82.9, MCH 28.4, MCHC 34.3, RDW Std Deviation 37.3, RDW Coeff of Geni 12.3, Plt Count 269, MPV 9.7, Immature Gran % (Auto) 0.400, Neut % (Auto) 95.0 H, Lymph % (Auto) 3.7 L, [place] % (Auto) 0.6, Eos % (Auto) 0.1, Baso % (Auto) 0.2, Absolute Neuts (auto) 12.9 H, Absolute Lymphs (auto) 0.50 L, Nucleated RBC % 0, Differential Comment SCANNED 07/09/20 14:30: Sodium 136, Potassium 3.9, Chloride 103, Carbon Dioxide 28.0, Anion Gap 5, BUN 9, Creatinine 1.03, Estim Creat Clear Calc 102.19, Est GFR (MDRD) Af Amer 112, Est GFR (MDRD) Non-Af 93, BUN/Creatinine Ratio 8.7 L, Glucose 155 H, Calcium 9.9 Assessment/Plan Hospitalist note: I am seeing this patient in conjunction with Byron Cox. I independently seen and examined the patient. History and physical, laboratory data and imaging studies reviewed and I concur with above admission and treatment plan. Patient presented to the emergency room because of 2 days history of cough, occasionally productive, associated with exertional shortness of breath as well as wheezing, he has been using Ventolin inhaler frequently without improvement, had some relief after he was started on prednisone. He denied fever or chills. He denied history of admission to ICU or intubation for asthma exacerbation. In the emergency department, patient was tachypneic, tachycardic, afebrile, blood pressure was stable. Upon arrival, pulse ox was 89% on room air, improved to 92% on 5 L. He received IV Solu-Medrol, IV magnesium sulfate, 2 rounds of DuoNeb and 2 rounds of albuterol nebulization. He remained short of breath, tachycardic and tachypneic. Chest x-ray showed no acute findings. COVID-19 antigen was negative. Routine blood work was remarkable for mild leukocytosis likely because of recent steroids, otherwise unremarkable. He is been admitted for asthma exacerbation and hypoxia. - Physical Exam General: Alert, Oriented x3, Cooperative, minimally short of breath. HEENT: Atraumatic, PERRLA, EOMI. Neck: Supple, No JVD, Negative Carotid Bruits, Trachea Midline, Thyroid Normal. Lungs: Decreased breath sounds bilateral, expiratory wheezes bilaterally more on the right lung, no rhonchi or crackles. Cardiovascular: Regular rate, Regular Rhythm, Normal S1, Normal S2, PMI Normal, tachycardia. Abdomen: Bowel Sounds Present, Soft, Non Tender, Non-Distended, No Hepato- splenomegaly. Extremities: No clubbing, No cyanosis, No edema Skin: No rashes, No breakdown Neurological: Cranial nerves are intact, neuro grossly intact Assessment and plan: #1 acute asthma exacerbation/hypoxia: Admit to PCU for observation, cardiac monitoring, DuoNeb every 4 hours, albuterol as needed, IV Solu-Medrol, incentive spirometer, gentle IV fluids for hydration, Tylenol as needed, Zofran as needed, oxygen by nasal cannula to keep O2 saturation around 92%. #2 DVT prophylaxis: Low risk patient, no prophylaxis indicated. This note was generated with [employer] software. It may contain incorrect words, spelling, and punctuation that were not noted in checking the note before signing. OBSV E&M: 04201 Initial observation care L2
--- NOTE | 2020-07-09 18:37 | NURSING ---
spoke with pharmacist about mag bolus rate from ED as per JUN. ok to run bolus at 52 ml/hr per pharmacist
[2020-07-09] MEDS: 0.9% Normal Saline 1,000 ML 75 ML IV (18:38)
[2020-07-10] VITALS (9 sets, daily range): BP systolic 116–130; BP diastolic 56–70; PULSE 99–127; RESP 16–20; TEMP 36.8; O2SAT 91–93
[2020-07-10] MEDS: Acetaminophen 325 MG Tablet 650 MG PO (04:31)
[2020-07-10] MEDS: 0.9% Saline Lock 10 ML Syringe IV ×2 (05:28→13:02)
[2020-07-10] MEDS: Ipratropium/Albuterol Sulfate 3 ML AMPUL.NEB INHALATION (07:32)
[2020-07-10] MEDS: Loratadine 10 MG Tablet PO (09:36)
--- NOTE | 2020-07-10 11:05 | PCM.DC ---
- Discharge Diagnoses Current Active Problems: Current Active and Chronic Problems Acute asthma exacerbation (Acute) Bronchial asthma (Chronic) You will use the following diet at home:: No restrictions Your food should be the consistency of: Regular Your liquids should be the consistency of: Regular/Thin Discharge Activity: Return to Normal Activity Allergies/Adverse Reactions: Allergies No Known Allergies Allergy (Verified 07/09/20 14:27) Medications to take at Discharge Albuterol Inhaler [Ventolin Hfa] 1 - 2 puff INHALATION Q4H PRN PRN #1 inhaler 05/10/20 Cetirizine HCl [Zyrtec] 10 mg PO DAILY 07/09/20 Fluticasone Propionate [Flovent Diskus] 2 puff INHALATION BID 07/09/20 predniSONE tablet See Taper PO DAILY #15 tab 07/10/20 The following prescriptions were given: predniSONE tablet See Taper PO DAILY #15 tab Transmission Status: Pending to [facility]/pharmacy #[id number] Primary Care Physician: Care Physician,No Primary [NON-STAFF] - Please follow up with your Primary Care Physician in: Within the next 2 weeks Test Results: Test results from this visit will be discussed in further detail at your follow-up appointment, if applicable. Proposed Discharge Date: 07/10/20
[2020-07-10] MEDS: Ipratropium 0.5 MG/2.5 ML SOLUTION INHALATION (11:25)
--- NOTE | 2020-07-10 11:56 | PCM.DC.SUM ---
<Byron Cox - Last Filed: 07/10/20 14:34> Discharge Date and Diagnosis - Problem List Patient Problems: Active and Suspected Problems Acute asthma exacerbation (Acute) Date of Admission: 07/09/20 Date of Discharge: 07/10/20 - Primary Discharge Diagnosis Acute Problems: Active Problems Acute asthma exacerbation (Acute) - Secondary Discharge Diagnosis Chronic Problems: Chronic Problems Bronchial asthma (Chronic) Hospital Course and Treatment Imaging Results: Clinical Impression(s) from Imaging Studies Chest X-Ray 07/09/20 15:21 IMPRESSION: Normal x-ray examination of the chest. Electronically Signed: Juan Jose Patel MD at 15:43 EDT , Service support , Summary of Care Provided: Patient is a 24-year-old male who presented to the ED on 07/09/2020 endorsing a 2-day history of increasing shortness of breath, alternating productive and nonproductive cough and chest pain. Patient was admitted for asthma exacerbation in the setting of chronic bronchial asthma. Patient reports marked improvement in his symptoms relative to shortness of breath and cough. Patient says he has not felt short of breath since 8 PM last night and now only has occasional episodes of coughing. Patient still is having episodes of tachycardia with exertion. Currently holding albuterol aerosols as these might Be contributing to the tachycardia. Patient did develop some yellow sputum, however antibioitcs will not be initiated at discharge. Considering the absence of fever throughout his stay, the mild elevation in WBC and the absence of any evidence of pneumonia on CXR there is low suspicion for infection. Sputum culture will be sent to lab, and patient will be contacted if any is found. 1) Asthma Exacerbation Assessment - WBC 13.6 - RR 16 - Tachycardic at a rate above 120 with episodes of exertion - CXR unremarkable - Rapid Covid negative - Expiratory wheezing with diminished breath sounds over both lung nieto - O2 saturation 92% on room air Plan - Reassess vital signs this afternoon after a period of no albuterol treatments - Patient currently on Atrovent as to not agonize heart rate - Prednisone burst initiated at discharge - Discharge today if tachycardia resolves - Follow-up with primary care provider within the next 2 weeks 2) Bronchial asthma Assessment - Managed chronically since childhood Plan - See above 3) Vaping/nicotine dependence Assessment - Has ceased vaping for 6 months Plan - Encourage further cessation Patient seen by Byron Cox PA-C, under the supervision of Dr. Tyler. Patient Problems: Active and Suspected Problems Acute asthma exacerbation (Acute) Subjective: Patient is a 24-year-old male who is resting comfortably in bed, alert and orient x3. Patient reports that he has not had any episodes of shortness of breath since 8 PM last night. Patient endorses only intermittent nonproductive cough, but reports that this has improved as well. Denies chest pain, palpitations, fever, N/V/D. - Physical Exam Vitals/I&O's: Vital Signs Temp Pulse Resp BP Pulse Ox 98.2 F 126 H 16 130/66 H 92 07/10/20 09:27 07/10/20 11:25 07/10/20 11:25 07/10/20 09:27 07/10/20 09:27 Oxygen Flow Rate (L/min) 2 Oxygen Delivery Method Room Air Weight: 143 lb Body Mass Index (BMI) 22.4 Intake and Output for Last 24 Hours 07/08/20 07/09/20 07/10/20 23:59 23:59 23:59 Intake Total 1051.5 / 1051.5 1083.75 / 1083.75 Balance 1051.5 / 1051.5 1083.75 / 1083.75 General: Alert, Oriented x3, Cooperative HEENT: Atraumatic, PERRLA, EOMI, Normocephalic Neck: Supple, No JVD, Negative Carotid Bruits Lungs: Wheezes Cardiovascular: No murmurs, Tachycardic, - - Tachycardia with exertion Abdomen: Bowel Sounds Present, Soft, Non Tender Extremities: No edema, Capillary Refill Less than 3 Seconds Skin: No rashes, No breakdown Musculoskeletal: No Tenderness to Palpation of Joints or Extremities Neurological: Cranial nerves II-XII grossly intact Psych/Mental Status: Normal Affect, Appropriate Microbiology Past 72 Hours 07/09/20 15:00 Mucosa - Nose SARS-CoV-2 Antigen (Rapid) - Final Laboratory Results 07/09/20 14:30: WBC 13.6 H, RBC 5.98, Hgb 17.0 H, Hct 49.6, MCV 82.9, MCH 28.4, MCHC 34.3, RDW Std Deviation 37.3, RDW Coeff of Geni 12.3, Plt Count 269, MPV 9.7, Immature Gran % (Auto) 0.400, Neut % (Auto) 95.0 H, Lymph % (Auto) 3.7 L, [place] % (Auto) 0.6, Eos % (Auto) 0.1, Baso % (Auto) 0.2, Absolute Neuts (auto) 12.9 H, Absolute Lymphs (auto) 0.50 L, Nucleated RBC % 0, Differential Comment SCANNED 07/09/20 14:30: Sodium 136, Potassium 3.9, Chloride 103, Carbon Dioxide 28.0, Anion Gap 5, BUN 9, Creatinine 1.03, Estim Creat Clear Calc 102.19, Est GFR (MDRD) Af Amer 112, Est GFR (MDRD) Non-Af 93, BUN/Creatinine Ratio 8.7 L, Glucose 155 H, Calcium 9.9 Current Medications Acetaminophen (Acetaminophen 325 Mg Tablet) 650 mg PO Q6H PRN PRN PRN Reason: Pain Score 1-10/Temp > 100.7 F Last Admin: 07/10/20 04:31 Dose: 650 mg Documented by: Ipratropium [place] (Ipratropium 0.5 Mg/2.5 Ml Solution) 0.5 mg INHALATION Q4H.RT [facility] Last Admin: 07/10/20 11:25 Dose: 0.5 mg Documented by: Loratadine (Loratadine 10 Mg Tablet) 10 mg PO DAILY [facility] Last Admin: 07/10/20 09:36 Dose: 10 mg Documented by: Methylprednisolone (Methylprednisolone 40 Mg/Ml Vial) 40 mg IV Q8 [facility] Last Admin: 07/10/20 05:25 Dose: 40 mg Documented by: Ondansetron HCl (Ondansetron 4 Mg/2 Ml Vial) 4 mg IV Q8H PRN PRN PRN Reason: NAUSEA/VOMITING Sodium Chloride (0.9% Saline Lock 10 Ml Syringe) 10 - 40 ml IV UD PRN PRN Reason: SALINE FLUSH Last Admin: 07/10/20 05:28 Dose: 10 ml Documented by: Zolpidem Tartrate (Zolpidem Tartrate 5 Mg Tablet) 5 mg PO QHS PRN PRN PRN Reason: INSOMNIA Discharge Diet: No Restrictions Discharge Activity: Return to Normal Activity Home Medications: Medications to take at Discharge Albuterol Inhaler [Ventolin Hfa] 1 - 2 puff INHALATION Q4H PRN PRN #1 inhaler 05/10/20 Cetirizine HCl [Zyrtec] 10 mg PO DAILY 07/09/20 Fluticasone Propionate [Flovent Diskus] 2 puff INHALATION BID 07/09/20 predniSONE tablet 2 tablet PO DAILY #10 tab 07/10/20 Following Prescriptions Were Given to Patient: predniSONE tablet 2 tablet PO DAILY #10 tab Transmission Status: Received by [facility]/pharmacy #[id number] Primary Care Physician: Care Physician,No Primary [NON-STAFF] - Please follow up with your Primary Care Physician in: Within the next 2 weeks Please Follow Up With: Ba Bass NP, NURSE ORTHO-C Please Follow Up With: Within the next 2 weeks Disposition: Home Minutes spent on discharge:: 35 Patient Condition:: Good Medical Necessity - Tobacco Use Smoking Status: Former smoker Tobacco Use: Cigarettes, Vapor Meaningful Use Info Meaningful Use Diagnoses (Choose all that apply): None applicable <Khari Tyler - Last Filed: 07/11/20 07:04> Discharge Date and Diagnosis - Primary Discharge Diagnosis Acute Problems: Active Problems Acute asthma exacerbation (Acute) - Secondary Discharge Diagnosis Chronic Problems: Chronic Problems Bronchial asthma (Chronic) Hospital Course and Treatment Operations: None Procedures: None Summary of Care Provided: Patient seen and examined independently. Data reviewed. I agree with the above note by the physician studio assistant. Patient seen and examined July 10. The patient is a 24 year old M presents with shortness of breath. Diagnosed with acute exacerbation of asthma. Patient was started on steroids with methylprednisolone duo nebs as well as as needed albuterol. Patient breathing greatly improved patient was doing well cannula. However, the patient's heart rate was elevated particularly after receiving bronchodilators. Heart rate be in the 120s to 130s. Is felt that the albuterol component of the bronchodilators were contributing to the tachycardia and were discontinued and heart rate did improve. Patient was discharged home in stable condition. [] - Physical Exam Vitals/I&O's: Vital Signs Temp Pulse Resp BP Pulse Ox 36.8 C 117 H 18 116/70 92 07/10/20 14:16 07/10/20 14:16 07/10/20 14:16 07/10/20 14:16 07/10/20 14:16 Oxygen Flow Rate (L/min) 2 Oxygen Delivery Method Room Air Weight: 64.864 kg Body Mass Index (BMI) 22.4 Intake and Output for Last 24 Hours 07/09/20 07/10/20 07/11/20 23:59 23:59 23:59 Intake Total 1051.5 / 1051.5 1683.75 / 1683.75 Balance 1051.5 / 1051.5 1683.75 / 1683.75 General: Alert, Cooperative HEENT: Atraumatic, Normocephalic Lungs: Normal air movement, Wheezes Cardiovascular: No murmurs, Tachycardic Psych/Mental Status: Normal Affect, Appropriate Microbiology Past 72 Hours 07/09/20 15:00 Mucosa - Nose SARS-CoV-2 Antigen (Rapid) - Final Discharge Diet: No Restrictions Discharge Activity: Return to Normal Activity Disposition: Home Patient Condition:: Good Medical Necessity - Tobacco Use Smoking Status: Former smoker Tobacco Use: Cigarettes, Vapor Meaningful Use Info Meaningful Use Diagnoses (Choose all that apply): None applicable OBSV E&M: 30756 Observation care discharge
== END 2020-07-10 11:05 | disposition home or self-care (01) ==
LOC: ED 15:00 → PCU 17:43
PROVIDERS: Admitting Provider Hospitalist; Emergency Provider Emergency Medicine; PCP Nurse Practitioner Family
DX: J45.901 Unspecified asthma with (acute) exacerbation (principal); Z79.899 Other long term (current) drug therapy; Z79.51 Long term (current) use of inhaled steroids; Z87.891 Personal history of nicotine dependence
CPT/HCPCS: 71045; 80048; 85025; 87070; 87205; 87426; 94640; 96361; 96374; 96376; 99218; 99285; 99406; J7030; A4216; G0378; J3475

== ENCOUNTER 2021-02-12 15:11 | Emergency (ER) | payer OTHER, SELFPAY ==
[2021-02-12 15:12] VITALS: BP 131/76; PULSE 95; RESP 20; TEMP 36.3; O2SAT 96; BMI 23.7
--- NOTE | 2021-02-12 15:29 | ED.VIS.DYS ---
HPI History of Present Illness Chief Complaint: Shortness of Breath Detail of Chief Complaint: Shortness of breath that started about a week ago. Informant: patient Narrative Narrative: Patient presents to the ER with increasing shortness of breath over the last week. Patient thinks he is having an asthma flare. Patient does state that he had COVID-19 on January 17 diagnosed and had recovered and was doing well till about a week ago. Patient has a cough but not really bringing up much phlegm. He has had no fever. Has not had significant chest discomfort. No history of PE or DVT. Patient's been using his inhaler at home as well as his aerosols without any resolution in the symptoms. [facility] Medical History (Updated 02/12/21 @ 16:[address] Leah Chan, ) ADHD Asthma Home Medications albuterol sulfate 1 - 2 puff INHALATION Q4H PRN PRN #1 inhaler 05/10/20 [Rx Last Taken Unknown] cetirizine 10 mg PO DAILY 07/09/20 [History Last Taken Unknown] fluticasone propionate 2 puff INHALATION BID 07/09/20 [History Last Taken Unknown] prednisone 2 tablet PO DAILY #10 tab 07/10/20 [Rx Last Taken Unknown] prednisone 20 mg PO BID #6 tab 02/12/21 [Rx Last Taken Unknown] Allergy/AdvReac Type Severity Reaction Status Date / Time No Known Allergies Allergy Verified 02/12/21 15:14 Social History Smoking Status: Former smoker ROS [facility] ED Constitutional Constitutional ED: Reports systems reviewed and no addt'l complaints, except as documented; Denies body ache(s), change in weight or chills Eyes Eyes: Denies acute decrease in peripheral vision, change in vision, double vision or loss of vision ENT ENT ED: Reports none; Denies ear pain, lip swelling, loss taste/smell, neck pain, otalgia or sore throat Cardiovascular Cardiovascular: Reports none; Denies abdominal pain, chest pain with activity, leg edema, lightheadedness, palpitations, rapid heart rate or syncope Respiratory/Chest Respiratory/Chest: Reports none, cough and dyspnea; Denies change in mental status, dry cough, hemoptysis, shortness of breath at rest or shortness of breath with exertion Gastrointestinal Gastrointestinal: Reports none; Denies abdominal pain, change in stool character, diarrhea, hematemesis, hematochezia, melena, rectal bleeding or vomiting Genitourinary Genitourinary ED: Reports none; Denies abdominal discomfort, anuria, dysuria, genital pain or polyuria Musculoskeletal Musculoskeletal: Reports none; Denies arthralgias, back pain, difficulty walking, extremity pain, muscle weakness or myalgias Integumentary Reports none; Denies abscess or rash Neurologic Neurologic: Reports none; Denies abnormal gait, confusion, focal weakness, frequent falls, headache(s), loss of vision, numbness, paresthesias, radicular pain, vertigo or weakness Psychiatric Psychiatric: Reports systems reviewed and no addt'l complaints, except as documented and none; Denies behavioral changes, confusion, difficulty concentrating, hallucinations, suicidal ideation, tactile hallucinations or visual hallucinations Endocrine Endocrinology: Denies none, cold intolerance, excessive sweating, fatigue or heat intolerance Hematologic/Lymphatic Hematologic/Lymphatic: Reports none; Denies anemia, easy bleeding or easy bruising Allergic/Immunologic Allergic/Immunologic ED: Denies as per HPI, none, lip swelling, mouth swelling, throat swelling, tongue swelling or hives EXAM Physical Exam Const Vital Signs: 02/12/21 15:12 02/12/21 15:40 02/12/21 15:42 Temperature 97.3 F L Temperature Source Temporal Pulse Rate 95 91 Respiratory Rate 20 H 20 H Respiratory Effort Short of Breath Respiratory Pattern Tachypnea Blood Pressure 131/76 H Blood Pressure Mean 94 Pulse Ox 96 Oxygen Delivery Method Room Air Positive well nourished and well developed General Appearance ED: well developed and NAD HEENT Reports TM's clear and moist mucous membranes normocephalic and atraumatic; Negative for trauma or tenderness Tympanic Membrane ED: Yes TM's clear Eyes PERRL and EOMs intact bilaterally General Eye ED: Negative for pale conjunctiva or scleral icterus Neck no lymphadenopathy, supple and no JVD General: Negative for tenderness Chest Wall inspection of chest normal and palpation of chest normal Chest: Negative for tenderness Resp normal respiratory effort Effort and Inspection: Negative for respiratory distress or pain with movement Auscultation: wheezes; Negative for rhonchi or diminished lung sounds Cardio regular rate, regular rhythm, S1 normal heart sound, S2 normal heart sound and no murmurs Peripheral Pulses: pulses 2+ throughout GI normal to inspection, nondistended, normoactive bowel sounds, soft to palpation, non-tender, non-distended and no masses Back/Spine no CVA tenderness and no thoracic nor lumbar tenderness Extremity normal to inspection General Extremety ED: Negative for edema General Extremity: Negative for edema Neuro oriented x3, CN's II-XII intact bilaterally, no sensory deficits noted and gait normal Sensorium / Orientation: awake, alert, oriented to person, oriented to place and oriented to time Motor Exam: strength 5/5 throughout and strength abnormal Psych mental status grossly normal Skin no rashes or lesions noted and no wounds MDM MDM MDM Narrative Medical decision making narrative: Patient had an IV line established on arrival. Patient was given a DuoNeb aerosol and Solu-Medrol 80 mg IV. He felt significantly improved after and on repeat exam his wheezing is mostly resolved. Patient will be given a prescription for prednisone for 3 days. Patient has albuterol aerosols and rescue inhaler at home. He is to follow-up with his primary care physician 3 to 5 days. He is to return if increasing shortness of breath or condition should worsen anyway. Lab Data Attestation: I reviewed the patient's lab results. Labs: Laboratory Results - last 24 hr 02/12/21 02/12/21 02/12/21 15:43 15:43 15:43 WBC 5.3 RBC 5.64 Hgb 15.7 Hct 46.2 MCV 81.9 MCH 27.8 MCHC 34.0 RDW Std Deviation 39.5 RDW Coeff of Geni 13.4 Plt Count 219 MPV 10.4 Immature Gran % (Auto) 0.200 Neut % (Auto) 60.4 Lymph % (Auto) 23.5 [place] % (Auto) 6.8 Eos % (Auto) 8.3 H Baso % (Auto) 0.8 Absolute Neuts (auto) 3.2 Absolute Lymphs (auto) 1.24 Nucleated RBC % 0 D-Dimer Quant (PE/DVT) <= 0.27 Sodium 141 Potassium 4.0 Chloride 110 H Carbon Dioxide 25.0 Anion Gap 6 BUN 7 Creatinine 1.05 Estim Creat Clear Calc 99.67 Est GFR (MDRD) Af Amer 110 Est GFR (MDRD) Non-Af 91 BUN/Creatinine Ratio 6.7 L Glucose 97 Calcium 9.3 Radiography Chest X-Ray - ED: 1 View Diagnostic Testing: Clinical Impression(s) from Imaging Studies Chest X-Ray 02/12/21 15:35 IMPRESSION: No acute cardiopulmonary disease or major interval change. Electronically Signed: Luciano Christensen DO at 15:42 EDT Tel [phone], Service support , 1 view chest x-ray obtained interpreted by myself as no acute disease process. Radiology in agreement. Discharge Plan Triage Chief Complaint: Shortness of Breath ED Provider: Leah Chan Dx/Rx/DC Orders Clinical Impression: Acute asthmatic bronchitis Instructions: ED Bronchitis with Wheezing (Adult) Prescriptions: New prednisone 20 mg tablet 20 mg PO BID Qty: 6 RF: 0 No Action albuterol sulfate 1 INHALER inhaler 1 - 2 puff INHALATION Q4H PRN PRN (Reason: Wheezing) Qty: 1 RF: 0 fluticasone propionate 100 MCG blister with device 2 puff INHALATION BID RF: 0 cetirizine 10 MG tablet 10 mg PO DAILY RF: 0 prednisone 20 MG tablet 2 tablet PO DAILY Qty: 10 RF: 0 Primary Care Provider: Ba Bass NP Referrals: Ba Bass NP, FOOD PREPARATION SUPERVISOR-C [Primary Care Provider] - 3-5 Days Disposition Disposition: Home, Self Care
--- NOTE | 2021-02-12 15:35 | RAD_ITS ---
STUDY: X-RAY CHEST REASON FOR EXAM: Male, 25 years old. Dyspnea. TECHNIQUE: Single AP portable view of the chest. COMPARISON: 07/09/2020. FINDINGS: The lungs are clear and expanded. There is no demonstrated pleural abnormality. Normal size heart. Normal mediastinum and noe. Normal visualized pulmonary arteries. Normal visualized aortic arch and descending thoracic aorta. Normal visualized thoracic spine. Normal visualized ribs, clavicles, and shoulders. There is no demonstrated abnormality of the visualized soft tissue structures of the upper abdomen. RAD/Chest 1 View (Portable) IMPRESSION: No acute cardiopulmonary disease or major interval change. Electronically Signed: Luciano Christensen DO at 15:42 EDT Tel [phone], Service support ,
[2021-02-12 15:42] VITALS: PULSE 91; RESP 20
[2021-02-12] MEDS: Ipratropium/Albuterol Sulfate 3 ML AMPUL.NEB INHALATION (15:42)
[2021-02-12] MEDS: MethylPREDNISolone 125 MG/2 ML Vial 80 MG IV (15:42)
[2021-02-12 15:54] LABS: Absolute Lymphocyte Count 1.24 X10^3/uL (0.83-4.51); Absolute Neutrophil Count 3.2 X10^3/uL (2.0-7.7); Basophil# 0.04 X10^3/uL; Basophil% 0.8 % (0-1); Eosinophil# 0.44 X10^3/uL; Eosinophils% 8.3 % (0-5); Hematocrit 46.2 % (40-54); Hemoglobin 15.7 g/dL (13.0-16.5); Lymphocyte # 1.24 X10^3/ul (0.83-4.51); Lymphocyte % 23.5 % (19-41); Mean Corpuscular Hgb 27.8 pg (27.0-32.0); Mean Corpuscular Volume 81.9 fL (80-94); Mean Platelet Vol. 10.4 fl (6.2-12.0); Monocyte# 0.36 X10^3/uL; Monocyte% 6.8 % (0-10); NRBC Flagged by Analyzer 0 % (0-5); Neutrophil # 3.19 X10^3/uL (2.7-7.7); Neutrophil % 60.4 % (47-70); Platelet Count 219 K/mm3 (150-450); RBC Distribution Width CV 13.4 % (11.6-14.6); RBC Distribution Width SD 39.5 fl (35.1-43.9); Red Blood Count 5.64 M/mm3 (4.6-6.2); White Blood Count 5.3 K/mm3 (4.4-11.0)
[2021-02-12 16:11] LABS: Anion Gap 6 (5-15); BUN 7 mg/dL (7-18); BUN/Creat Ratio 6.7 RATIO (10-20); Calcium,Total 9.3 mg/dL (8.5-10.1); Chloride 110 mmol/L (98-107); Creatinine, Serum 1.05 mg/dL (0.70-1.30); EST Glomerular Filtration Rate 91 mL/min (>60); Est Glom Filt Rate - Afr Amer 110 mL/min (>60); Estimated Creatinine Clearance 99.67 ml/min; Glucose 97 mg/dL (74-106); Sodium Level 141 mmol/L (136-145)
[2021-02-12 16:18] LABS: D-Dimer Quantitative (DVT/PE) <= 0.27 FEU/ug/m (0.27-0.49)
[2021-02-12 16:36] VITALS: PULSE 100; RESP 18; O2SAT 99
== END 2021-02-12 16:37 | disposition home or self-care (01) ==
PROVIDERS: Emergency Provider Emergency Medicine; PCP Nurse Practitioner Family
DX: J45.909 Unspecified asthma, uncomplicated (principal); Z87.891 Personal history of nicotine dependence; Z86.16 Personal history of COVID-19
CPT/HCPCS: 71045; 80048; 85025; 85379; 94640; 96374; 99284

== ENCOUNTER 2021-02-25 17:01 | Emergency (ER) | payer OTHER, SELFPAY ==
[2021-02-25 17:01] VITALS: BP 133/85; PULSE 75; RESP 16; TEMP 36.4; O2SAT 98; BMI 23.1
--- NOTE | 2021-02-25 18:10 | EDS_ITS ---
HPI History of Present Illness Chief Complaint: Asthma Detail of Chief Complaint: Shortness of breath with wheezing, history of asthma Informant: patient Onset/Context/Timing Onset: Yesterday Context: gradual Timing: Continuous and Waxes and wanes Quality: Positive for Dyspnea on exertion; Negative for Orthopnea and Wheezing Current Severity: Mild Maximum Severity: Severe Worsened by: Exertion and Coughing Relieved by: Nothing Associated Symptoms cough, rhinorrhea and other; Negative for post nasal drip, ear pain, fever, sore throat, subjective, chills, sweats, clear sputum, white sputum, yellow sputum or green sputum Chest Pain: Positive for None Narrative Narrative: Patient is a 25-year-old male with history of asthma. He does vape. He did have Covid several months ago. He was seen several weeks ago and treated for asthma and placed on prednisone. He denies fever, chills night sweats. Denies headache. He does report mild rhinorrhea. He denies congestion postnasal drainage. Denies sore throat. He states his taste and smell is not back to normal. It has improved. He denies chest discomfort. He denies nausea, vomiting diarrhea. He denies myalgias or arthralgias. PE Risk Factors: Negative for Cancer, OCP + Smoking + > 35, Prior DVT or PE, Recent immobilization, Recent surgery and Recent travel Prior similar symptoms: Yes Recent Illness/Hospitalization: Yes [facility] Medical History ADHD Asthma Home Medications albuterol sulfate 1 - 2 puff INHALATION Q4H PRN PRN #1 inhaler 05/10/20 [Rx Last Taken Unknown] cetirizine 10 mg PO DAILY 07/09/20 [History Last Taken Unknown] fluticasone propionate 2 puff INHALATION BID 07/09/20 [History Last Taken Unknown] prednisone 2 tablet PO DAILY #10 tab 07/10/20 [Rx Last Taken Unknown] prednisone 20 mg PO BID #6 tab 02/12/21 [Rx Last Taken Unknown] inhalational spacing device [Aerochamber MV] #1 ea 02/25/21 [Rx Last Taken Unknown] prednisone 10 mg PO UD #33 tab 02/25/21 [Rx Last Taken Unknown] Allergy/AdvReac Type Severity Reaction Status Date / Time No Known Allergies Allergy Verified 02/25/21 17:03 Surgical History no surgical history no surgical history Social History (Updated 02/25/21 @ 18:[address] Dillon Finney MD) household members: other Smoking Status: Former smoker substance use type: does not use ROS ROS ED Constitutional Constitutional ED: Denies chills, fever(s), sweats or weight loss Eyes Eyes: Denies blurry vision or change in vision ENT ENT ED: Reports rhinorrhea; Denies ear pain or sore throat Cardiovascular Cardiovascular: Denies chest pain, orthopnea, palpitations or paroxysmal nocturnal dyspnea Respiratory/Chest Respiratory/Chest: Reports cough and dyspnea; Denies dyspnea on exertion, orthopnea, paroxysmal nocturnal dyspnea or sputum Gastrointestinal Gastrointestinal: Denies abdominal pain, diarrhea, nausea or vomiting Musculoskeletal Musculoskeletal: Denies arthralgias or myalgias Neurologic Neurologic: Denies headache(s) or weakness Hematologic/Lymphatic Hematologic/Lymphatic: Denies easy bleeding or easy bruising EXAM Physical Exam Const Vital Signs: 02/25/21 17:01 02/25/21 18:17 02/25/21 18:31 Temperature 97.5 F L Temperature Source Temporal Pulse Rate 75 91 Respiratory Rate 16 16 Respiratory Effort Short of Breath Short of Breath Respiratory Depth Normal Respiratory Pattern Normal Blood Pressure 133/85 H Blood Pressure Mean 101 Pulse Ox 98 95 Oxygen Delivery Method Room Air Room Air Positive well nourished and well developed; Negative for obese, cachectic, contractures or unkempt General Appearance ED: well developed and NAD; Negative for unkempt, cachectic, contractures or pallor Nutritional Appearance: Negative for cachectic or obese HEENT Reports TM's clear and moist mucous membranes atraumatic Tympanic Membrane ED: Yes TM's clear Eyes PERRL and EOMs intact bilaterally General Eye ED: Negative for pale conjunctiva or scleral icterus Neck no lymphadenopathy, supple, no meningeal signs and no JVD Resp normal respiratory effort and No clear to auscultation bilaterally Auscultation: wheezes expiratory wheezes and throughout Cardio regular rate, regular rhythm, S1 normal heart sound, S2 normal heart sound and no murmurs GI non-tender, non-distended and no masses Auscultation: normoactive bowel sounds Palpation: soft Back/Spine no CVA tenderness and normal to inspection Extremity normal to inspection General Extremety ED: Negative for edema General Extremity: Negative for edema Neuro oriented x3 and CN's II-XII intact bilaterally Sensorium / Orientation: alert Psych Appearance: Negative for unkempt Skin no wounds General Skin Exam: Negative for jaundice or pallor Lesions: no lesions Rashes: no rashes MDM MDM MDM Narrative Medical decision making narrative: Patient has wheezing throughout. He states has been using his nebulizer with no improvement. He was treated with 60 mils of prednisone and albuterol inhalation therapy q. 20 minutes x 3. He will be reassessed in 1 hour. Since he was recently here and has returned we will place on a long tapering dose of prednisone. X-ray was not obtained since he is not febrile, tachycardic or tachypneic. Patient was reassessed at 2054. He is resting comfortably in bed. His vital signs have improved. On forced expiration slight wheeze noted on the right. Plan is tapering dose of prednisone since he was recently placed on a burst. He has been instructed to use his nebulizer or inhaler more frequently. Discharge Plan Triage Chief Complaint: Asthma ED Provider: Dillon Finney Dx/Rx/DC Orders Clinical Impression: Acute asthma exacerbation Instructions: ED Asthma, Acute (Adult) Prescriptions: New prednisone 10 MG tablet 10 mg PO UD Qty: 33 RF: 0 (DME) Aerochamber MV Spacer See Rx Instructions .ROUTE .MEDSUPPLY Qty: 1 RF: 0 No Action albuterol sulfate 1 INHALER inhaler 1 - 2 puff INHALATION Q4H PRN PRN (Reason: Wheezing) Qty: 1 RF: 0 fluticasone propionate 100 MCG blister with device 2 puff INHALATION BID RF: 0 cetirizine 10 MG tablet 10 mg PO DAILY RF: 0 prednisone 20 MG tablet 2 tablet PO DAILY Qty: 10 RF: 0 prednisone 20 mg tablet 20 mg PO BID Qty: 6 RF: 0 Primary Care Provider: Ba Bass NP Referrals: Ba Bass NP, PATIENT REPRESENTATIVE-C [Primary Care Provider] - 3-5 Days if not improving Disposition Disposition: Home, Self Care
[2021-02-25 18:17] VITALS: PULSE 91; RESP 16; O2SAT 95
[2021-02-25] MEDS: Albuterol 2.5 MG/3 ML VIAL.NEB. INHALATION ×3 (18:17→18:39)
[2021-02-25] MEDS: predniSONE 20 MG Tablet 60 MG PO (18:30)
--- NOTE | 2021-02-25 18:51 | CPS ---
x3 Albuterol given in ER
== END 2021-02-25 21:17 | disposition home or self-care (01) ==
PROVIDERS: Emergency Provider Emergency Medicine; PCP Nurse Practitioner Family
DX: J45.901 Unspecified asthma with (acute) exacerbation (principal); Z87.891 Personal history of nicotine dependence
CPT/HCPCS: 94640; 99251; 99283; G0463

== ENCOUNTER 2021-09-08 17:18 | Emergency (ER) | payer SELFPAY ==
[2021-09-08 17:19] VITALS: BP 128/80; PULSE 74; RESP 18; TEMP 35.8; O2SAT 97; BMI 23.9
[2021-09-08 17:42] VITALS: BP 129/84; PULSE 64; RESP 16; TEMP 37.2; O2SAT 98
[2021-09-08 18:10] VITALS: BP 132/73; PULSE 74; RESP 22
--- NOTE | 2021-09-08 18:14 | EX.ED.DYSGE1 ---
HPI History of Present Illness Chief Complaint: Palpitations Informant: patient Narrative Narrative: Presents for palpitations lasting half hour around noon today 1 6 hours ago. States has a discomfort down his left arm midway around 1 PM. None since. He finished working came here. Patient no previous similar symptoms. Past med history of asthma. Denies cough. Remote tobacco quit smoking over a year ago. No family history of MIs at a young age. Denies recreational drug use. He does state he drinks preworkout energy drinks as frequent there is been no changes. He drinks 1 can over 6 hours today. Prior similar symptoms: No PFSH PFSH Medical History ADHD Asthma Home Medications albuterol sulfate 1 - 2 puff INHALATION Q4H PRN PRN #1 inhaler 05/10/20 [Rx Last Taken Unknown] cetirizine 10 mg PO DAILY 07/09/20 [History Last Taken Unknown] fluticasone propionate 2 puff INHALATION BID 07/09/20 [History Last Taken Unknown] prednisone 2 tablet PO DAILY #10 tab 07/10/20 [Rx Last Taken Unknown] prednisone 20 mg PO BID #6 tab 02/12/21 [Rx Last Taken Unknown] inhalational spacing device [Aerochamber MV] #1 ea 02/25/21 [Rx Last Taken Unknown] prednisone 10 mg PO UD #33 tab 02/25/21 [Rx Last Taken Unknown] Allergy/AdvReac Type Severity Reaction Status Date / Time No Known Allergies Allergy Verified 09/08/21 17:19 Social History household members: other Smoking Status: Former smoker substance use type: does not use ROS ROS ED Constitutional Constitutional ED: Denies chills, fever(s) or sweats Eyes Eyes: Denies change in vision ENT ENT ED: Denies dysphagia or sore throat Cardiovascular Cardiovascular: Reports palpitations; Denies chest pain, leg edema or racing heartbeat Respiratory/Chest Respiratory/Chest: Denies cough, dyspnea or dyspnea on exertion Gastrointestinal Gastrointestinal: Denies abdominal pain, diarrhea, nausea or vomiting Genitourinary Genitourinary ED: Denies dysuria, hematuria or urinary frequency Musculoskeletal Musculoskeletal: Denies back pain, extremity pain or neck pain Integumentary Denies rash or wounds Neurologic Neurologic: Denies headache(s), paresthesias or weakness EXAM Physical Exam Const Vital Signs: 09/08/21 17:19 09/08/21 17:42 09/08/21 18:10 Temperature 96.4 F L 98.9 F Temperature Source Temporal Temporal Pulse Rate 74 64 74 Respiratory Rate 18 16 22 H Respiratory Effort Normal Blood Pressure 128/80 H 129/84 H 132/73 H Blood Pressure Mean 96 99 Pulse Ox 97 98 Oxygen Delivery Method Room Air Room Air Positive well nourished and well developed General Appearance ED: well developed and NAD HEENT Reports moist mucous membranes normocephalic and atraumatic Eyes PERRL, EOMs intact bilaterally and conjunctivae normal General Eye ED: Yes normal appearance of both eyes Neck no lymphadenopathy and supple General: Negative for tenderness Chest Wall Chest: Negative for tenderness Resp normal respiratory effort and normal air movement Effort and Inspection: symmetric chest movement; Negative for respiratory distress Cardio regular rate, regular rhythm and no murmurs Peripheral Pulses: pulses 2+ throughout GI normal to inspection, nondistended, normoactive bowel sounds and non-tender Palpation: Negative for guarding or rebound tenderness present Back/Spine no CVA tenderness and no thoracic nor lumbar tenderness Extremity normal to inspection General Extremety ED: Negative for edema or tenderness General Extremity: Negative for edema Neuro oriented x3 and no sensory deficits noted Sensorium / Orientation: awake and alert Skin no rashes or lesions noted and no wounds MDM MDM MDM Narrative Medical decision making narrative: Patient asymptomatic for the last 5 hours EKG is normal. No recent vomiting or diarrhea. Discussed laboratory work-up but likely help at this time. Discussed possibly set up Holter monitor he states he will follow-up with his PCP for this. He is worried about cost and did not want extra test done at this time. He states insurance kicks in next month. He will monitor symptoms with return precautions discussed. EKG Initial EKG: Attestation: I personally reviewed and interpreted this EKG as follows: Comments: Sinus rate of 68, no ST or T wave changes QTC 408. Discharge Plan Triage Chief Complaint: Palpitations Other Complaint: Chest Pain Numb/Ting ED Provider: Ventura Starr Dx/Rx/DC Orders Clinical Impression: Palpitation, History of asthma Instructions: ED Palpitations Prescriptions: No Action albuterol sulfate 1 INHALER inhaler 1 - 2 puff INHALATION Q4H PRN PRN (Reason: Wheezing) Qty: 1 RF: 0 fluticasone propionate 100 MCG blister with device 2 puff INHALATION BID RF: 0 cetirizine 10 MG tablet 10 mg PO DAILY RF: 0 prednisone 20 MG tablet 2 tablet PO DAILY Qty: 10 RF: 0 prednisone 20 mg tablet 20 mg PO BID Qty: 6 RF: 0 prednisone 10 MG tablet 10 mg PO UD Qty: 33 RF: 0 (DME) Aerochamber MV Spacer See Rx Instructions .ROUTE .MEDSUPPLY Qty: 1 RF: 0 Primary Care Provider: Ba Bass NP Referrals: Ba Bass NP, MAINTENANCE GROUNDMAN-C [Primary Care Provider] - 3-5 Days Activity Restrictions/Additional Instructions: Normal EKG. Possibly Holter monitor as an outpatient. Return if any worsening symptoms. Disposition Disposition: Home, Self Care Discharge Date/Time: 09/08/21 18:15
--- NOTE | 2021-09-08 18:48 | EKG12_ITS ---
Test Reason : PALPS Blood Pressure : / mmHG Vent. Rate : 068 BPM Atrial Rate : 068 BPM P-R Int : 150 ms QRS Dur : 096 ms QT Int : 384 ms P-R-T Axes : 051 039 028 degrees QTc Int : 408 ms Normal sinus rhythm Normal ECG Confirmed by PENNIE HOLLINGSWORTH, LULU ([id number]), editor at large LUZ HERNÁNDEZ ([id number]) on 09/12/2021 12:51:09 PM Referred By: LOREE Confirmed By:LULU CASPER MD
== END 2021-09-08 18:15 | disposition home or self-care (01) ==
PROVIDERS: Emergency Provider Emergency Medicine; PCP Nurse Practitioner Family; Visit Provider Emergency Medicine
DX: R00.2 Palpitations (principal); Z87.891 Personal history of nicotine dependence
CPT/HCPCS: 93005; 99282; A4216